=== PATIENT | female | born 1970 | race Caucasian/White ===

== ENCOUNTER → 2017-05-31 | Day surgery (SDC) | payer OTHER ==
[~2017-05-31] VITALS: Ht 158.8 cm; Wt 69.0 kg
[~2017-05-31] MED LIST: ASCA500 PO; CLR10 PO; CYCL10TA6 PO; MELOXICAM PO; MULT-506 PO; PROB1CAP PO; PROZAC PO; TIZA4CAP PO; TOPAMAX PO; TRAZODONE PO
[2017-05-31 08:55] VITALS: BP 115/77; PULSE 71; TEMP 36.5; O2SAT 95; Ht 158.8 cm; Wt 69.0 kg
--- NOTE | 2017-06-14 11:05 | Procedure Note ---
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 Recommendations: Followup with CRISTA John in our office Start Xifaxan 550mg by mouth PO TID for 14 days.
== END | disposition home or self-care (01) ==
LOC: C.MTU 08:34
PROVIDERS: ATTEND Internal Medicine
DX: R14.0 Abdominal distension (gaseous) (principal); K52.9 Noninfective gastroenteritis and colitis, unspecified; R10.84 Generalized abdominal pain